=== PATIENT | female | born 1950 | race Caucasian/White ===

== ENCOUNTER 2016-11-10 10:29 | Inpatient (IN) | payer MEDICARE ==
[~2016-11-10] VITALS: Ht 177.8 cm; Wt 83.0 kg
[~2016-11-10 10:29] MED LIST: CHOLESTEROL MED; DESYREL 50MG50 MG PO; DOXYCYCLINE HY100 MG PO; GLUCOPHAGE1000 MG PO; NORCO 325 MG-51 TAB PO; PHENERGAN 25 TA25 MG PO; PHENTERMINE H37.5 MG PO; TRAZADONE HYDR100 MG PO; TRAZODONE; ZOCOR 40MG40 MG PO; ZOCOR20 MG PO; ZOFRAN ODT4 MG PO
[2016-11-10 12:00] LABS: HEMATOCRIT 39.1 % (37.0-47.0); HEMOGLOBIN 13.1 g/dl (12.5-16.0); MEAN CELL VOLUME 84 fl (80.0-100.0); MEAN CORPUSCULAR HEMOGLOBIN 28 pg (27.0-31.0); MEAN CORPUSCULAR HGB CONC 34 g/dl (33.0-37.0); MEAN PLATELET VOLUME 12.6 fl (7.4-10.4); PLATELET COUNT 212 K/mm3 (130-400); RED BLOOD COUNT 4.68 M/mm3 (4.10-5.30); REDCELL DISTRIBUTION WIDTH-CV 14.2 % (11.5-14.5); WHITE BLOOD COUNT 3.1 K/mm3 (4.8-10.8)
[2016-11-10 12:02] LABS: ADD PATHOLOGY DIFF REVIEW NO
[2016-11-10 12:07] LABS: ADJUSTED CALCIUM 9.1 mg/dL (8.4-10.2); ALBUMIN 3.4 gm/dL (3.5-5.0); BILIRUBIN,TOTAL 1.2 mg/dL (0.0-1.0); CALCIUM 8.6 mg/dL (8.4-10.2); CREATININE, serum 0.6 mg/dL (0.52-1.25); POTASSIUM 3.8 mmol/L (3.4-5.0); TOTAL PROTEIN 6.3 gm/dL (6.4-8.2)
[2016-11-10] MEDS ORDERED: PHENERGAN 25 TA25 MG PO (12:16)
[2016-11-10] MEDS ORDERED: NORCO 325 MG-101 TAB PO (12:17)
[2016-11-10 12:29] LABS: BAND 15 % (0-10); MYELOCYTE 2 % (0-0); NEUTROPHILS 28 % (42.0-75.2); TOTAL CELLS COUNTED 100
[2016-11-10 12:30] LABS: PLATELET ESTIMATE NORMAL (NORMAL)
[2016-11-10] MEDS ORDERED: ZOFRAN 4MG T4 MG/TAB PO (15:41)
[2016-11-10 17:55] VITALS: BP 101/63; PULSE 105; TEMP 98.2
[2016-11-10 19:25] VITALS: BP 112/63; PULSE 102; TEMP 97.9
[2016-11-11] VITALS (615 sets, daily range): BP systolic 88–104; BP diastolic 60–78; PULSE 60–169; TEMP 97.9–98.9; O2SAT 89–99
[2016-11-11 06:52] LABS: MEAN CELL VOLUME 85 fl (80.0-100.0); MEAN CORPUSCULAR HGB CONC 33 g/dl (33.0-37.0); MEAN PLATELET VOLUME 12.4 fl (7.4-10.4); PLATELET COUNT 201 K/mm3 (130-400); RED BLOOD COUNT 4.22 M/mm3 (4.10-5.30); REDCELL DISTRIBUTION WIDTH-CV 14.4 % (11.5-14.5); WHITE BLOOD COUNT 3.3 K/mm3 (4.8-10.8)
[2016-11-11 06:57] LABS: HEMATOCRIT 35.8 % (37.0-47.0); HEMOGLOBIN 11.9 g/dl (12.5-16.0); MEAN CORPUSCULAR HEMOGLOBIN 28 pg (27.0-31.0)
[2016-11-11 07:01] LABS: CALCIUM 7.7 mg/dL (8.4-10.2); CREATININE, serum 0.57 mg/dL (0.52-1.25); POTASSIUM 3.5 mmol/L (3.4-5.0)
[2016-11-11 07:22] LABS: BAND 43 % (0-10); METAMYELOCYTE 3 % (0-0); MYELOCYTE 2 % (0-0); NEUTROPHILS 21 % (42.0-75.2); TOTAL CELLS COUNTED 100
[2016-11-11 07:23] LABS: ADD PATHOLOGY DIFF REVIEW YES; TOXIC GRANULATION PRESENT
[2016-11-11 08:24] LABS: PATHOLOGY DIFF REVIEW OK
[2016-11-11 11:19] LABS: ALLEN TEST NO; ARTERIAL BLD GAS O2 SATURATION 94.9 % (92-100); ARTERIAL BLD GAS TCO2 CT 22.7; ARTERIAL BLOOD GAS BASE EXCESS -1.1 (-2-2); ARTERIAL BLOOD GAS HCO3 21.7 meq/L (22-26); ARTERIAL BLOOD GAS PHT 7.47 C (7.35-7.45); ARTERIAL BLOOD GAS PO2 72.1 mmHg (80-100); ARTERIAL BLOOD GAS PO2T 72.1 (80-100); ARTERIAL BLOOD GAS pH 7.47 (7.35-7.45); ATS? YES; OXYHEMOGLOBIN 94.7 %
[2016-11-12] VITALS (1358 sets, daily range): BP systolic 93–118; BP diastolic 65–77; PULSE 96–127; TEMP 97.3–99.4; O2SAT 73–100
[2016-11-12 13:04] LABS: MEAN CELL VOLUME 84 fl (80.0-100.0); MEAN CORPUSCULAR HGB CONC 34 g/dl (33.0-37.0); MEAN PLATELET VOLUME 12.6 fl (7.4-10.4); PLATELET COUNT 207 K/mm3 (130-400); RED BLOOD COUNT 4.11 M/mm3 (4.10-5.30); REDCELL DISTRIBUTION WIDTH-CV 14.6 % (11.5-14.5); WHITE BLOOD COUNT 4.2 K/mm3 (4.8-10.8)
[2016-11-12 13:11] LABS: HEMATOCRIT 34.3 % (37.0-47.0); HEMOGLOBIN 11.5 g/dl (12.5-16.0); MEAN CORPUSCULAR HEMOGLOBIN 28 pg (27.0-31.0)
[2016-11-12 13:20] LABS: CALCIUM 7.5 mg/dL (8.4-10.2); CREATININE, serum 0.46 mg/dL (0.52-1.25); MAGNESIUM 2.2 mg/dL (1.6-2.3); POTASSIUM 3.4 mmol/L (3.4-5.0)
[2016-11-12 13:43] LABS: ADD PATHOLOGY DIFF REVIEW NO
[2016-11-12 13:48] LABS: BAND 48 % (0-10); METAMYELOCYTE 7 % (0-0); NEUTROPHILS 20 % (42.0-75.2); TOTAL CELLS COUNTED 100
[2016-11-12 13:50] LABS: DOHLE BODIES PRESENT; TOXIC GRANULATION PRESENT
[2016-11-13] VITALS (1192 sets, daily range): BP systolic 103–116; BP diastolic 69–70; PULSE 87–96; TEMP 97–99.3; O2SAT 56–100
[2016-11-13 05:47] LABS: MEAN CELL VOLUME 82 fl (80.0-100.0); MEAN CORPUSCULAR HGB CONC 34 g/dl (33.0-37.0); MEAN PLATELET VOLUME 12.2 fl (7.4-10.4); PLATELET COUNT 181 K/mm3 (130-400); RED BLOOD COUNT 3.76 M/mm3 (4.10-5.30); REDCELL DISTRIBUTION WIDTH-CV 14.6 % (11.5-14.5); WHITE BLOOD COUNT 3.6 K/mm3 (4.8-10.8)
[2016-11-13 05:50] LABS: ADD PATHOLOGY DIFF REVIEW NO; HEMOGLOBIN 10.4 g/dl (12.5-16.0); MEAN CORPUSCULAR HEMOGLOBIN 28 pg (27.0-31.0)
[2016-11-13 06:00] LABS: CALCIUM 7.2 mg/dL (8.4-10.2); CREATININE, serum 0.45 mg/dL (0.52-1.25); POTASSIUM 3.3 mmol/L (3.4-5.0)
[2016-11-13 06:12] LABS: BAND 35 % (0-10); NEUTROPHILS 50 % (42.0-75.2); TOTAL CELLS COUNTED 100
[2016-11-14] VITALS (553 sets, daily range): BP systolic 85–97; BP diastolic 56–65; PULSE 88–105; TEMP 97.2–98.4; O2SAT 70–100
[2016-11-14 06:22] LABS: MEAN CELL VOLUME 82 fl (80.0-100.0); MEAN CORPUSCULAR HGB CONC 35 g/dl (33.0-37.0); MEAN PLATELET VOLUME 12.5 fl (7.4-10.4); PLATELET COUNT 155 K/mm3 (130-400); RED BLOOD COUNT 3.65 M/mm3 (4.10-5.30); REDCELL DISTRIBUTION WIDTH-CV 14.8 % (11.5-14.5); WHITE BLOOD COUNT 3.8 K/mm3 (4.8-10.8)
[2016-11-14 06:26] LABS: ADD PATHOLOGY DIFF REVIEW NO; HEMATOCRIT 29.9 % (37.0-47.0); HEMOGLOBIN 10.4 g/dl (12.5-16.0); MEAN CORPUSCULAR HEMOGLOBIN 28 pg (27.0-31.0)
[2016-11-14 06:59] LABS: PROTHROMBIN TIME 169.9 SECONDS (9.7-12.8)
[2016-11-14 07:00] LABS: INR 14.1 (0.8-3.0)
[2016-11-14 07:48] LABS: BAND 29 % (0-10); METAMYELOCYTE 4 % (0-0); MYELOCYTE 4 % (0-0); NEUTROPHILS 43 % (42.0-75.2); TOTAL CELLS COUNTED 100
[2016-11-14 07:49] LABS: PLATELET ESTIMATE NORMAL (NORMAL)
[2016-11-14 07:50] LABS: TOXIC GRANULATION PRESENT
[2016-11-14 11:47] LABS: ADJUSTED CALCIUM 8.6 mg/dL (8.4-10.2); ALBUMIN 2.4 gm/dL (3.5-5.0); BILIRUBIN,DIRECT 1.1 mg/dL (0.0-0.4); BILIRUBIN,TOTAL 1.2 mg/dL (0.0-1.0); CALCIUM 7.3 mg/dL (8.4-10.2); CREATININE, serum 0.46 mg/dL (0.52-1.25); POTASSIUM 4.1 mmol/L (3.4-5.0); TOTAL PROTEIN 5.1 gm/dL (6.4-8.2)
[2016-11-15 07:48] VITALS: BP 87/47; PULSE 89; TEMP 97.6
[2016-11-15] MEDS ORDERED: MORPHINEPCA IV (11:08)
[2016-11-15] MEDS ORDERED: TRANSDERM-0.5 MG/21 TD (11:09)
[2016-11-15] MEDS ORDERED: ZOFRAN ODT8 MG PO (11:10)
[2016-11-15] MEDS ORDERED: ATIVAN 1MG T1 MG/TAB PO (11:10)
== END 2016-11-15 15:35 | disposition hospice, inpatient (51) | DRG 175 ==
LOC: COL.ER 10:29 → MEDICAL 13:31 → ICU 11-11 12:20 → IMCU 11-12 17:50 → ICU 11-13 12:00 → IMCU 11-13 12:00 → MEDICAL 11-14 15:05 → ICU 11-14 15:05 → MEDICAL 11-14 15:05
PROVIDERS: Emergency Medicine; Family Medicine; Internal Medicine Cardiovascular Disease; Internal Medicine Hospice and Palliative Medicine; Nurse Practitioner Family
PROC: 0W9B3ZX Drainage of Left Pleural Cavity, Percutaneous Approach, Diagnostic (ICD-10-PCS; principal; 2016-11-10)
PROC: 5A2204Z Restoration of Cardiac Rhythm, Single (ICD-10-PCS; 2016-11-11)
PROC: 5A2204Z Restoration of Cardiac Rhythm, Single (ICD-10-PCS; 2016-11-12)
DX: I26.99 Other pulmonary embolism without acute cor pulmonale (principal); E43 Unspecified severe protein-calorie malnutrition; E87.1 Hypo-osmolality and hyponatremia; C25.9 Malignant neoplasm of pancreas, unspecified; C78.80 Secondary malignant neoplasm of unspecified digestive organ; J91.0 Malignant pleural effusion; K56.60 Unspecified intestinal obstruction; R18.0 Malignant ascites; I82.441 Acute embolism and thrombosis of right tibial vein; I82.412 Acute embolism and thrombosis of left femoral vein; Z51.5 Encounter for palliative care; I48.0 Paroxysmal atrial fibrillation; Z87.891 Personal history of nicotine dependence; E11.9 Type 2 diabetes mellitus without complications; Z79.4 Long term (current) use of insulin; Z66 Do not resuscitate
CPT/HCPCS: 99222-AI; 99232-AI; 99233-AI; 99239; C9113; G0378; J0282; J1160; J1170; J1650; J2060; J2270; J2405; J2550; J2704; J3480; J7030; J7060; J7070; Q9967